=== PATIENT | female | born 1990 | race Caucasian/White ===

== ENCOUNTER 2019-09-28 14:17 | Emergency (ER) | payer MEDICAID, OTHER ==
[2019-09-28 14:35] VITALS: BP 135/77; PULSE 74
--- NOTE | 2019-09-28 15:25 | EDM.PDOC ---
ED HPI GENERAL MEDICAL PROBLEM - General Chief Complaint: Lower Extremity Injury/Pain Stated Complaint: SPRAIN ANKLE AT WORK Time Seen by Provider: 09/28/19 14:50 Source of Information: Reports: Patient History Limitations: Reports: No Limitations - History of Present Illness INITIAL COMMENTS - FREE TEXT/NARRATIVE: pt presents to the ER with left ankle pain that occurred while at work today after she twisted her ankle by missing the last step in a staircase. she states the pain is mostly in her lateral ankle and it worsens with shooting pain moving up her achilles tendon with passive and active ROM. passive and active ROM is painful, but she states she is able to demonstrate. she denies numbness, tingling, bruising, midfoot tenderness, deformity of left ankle and foot. Left Lower Ankle Pain Score (Numeric/FACES): 5 - Related Data Allergies Allergy/AdvReac Type Severity Reaction Status Date / Time codeine Allergy Pain Verified 09/28/19 14:52 morphine Allergy Nausea Verified 09/28/19 14:52 Home Meds: Home Meds Mirtazapine [Remeron] 15 mg PO BEDTIME 09/28/19 [History] OXcarbazepine [Trileptal] 300 mg PO BID 09/28/19 [History] Past Medical History - Past Health History Medical/Surgical History: Denies Medical/Surgical History HEENT History: Reports: Impaired Vision Other Cardiovascular History: periodical chest pain, having MRI this weekend. Hx of drug usage, Gastrointestinal History: Reports: GERD Other Genitourinary History: no problem [employer] HELPER History: Reports: , Spontaneous Other Musculoskeletal History: knee problems, prior to fall Neurological History: Reports: Concussion Psychiatric History: Reports: Addiction, Bipolar, Depression - Past Surgical History GI Surgical History: Reports: Cholecystectomy Social & Family History - Family History Family Medical History: Noncontributory - Tobacco Use Smoking Status *Q: Current Every Day Smoker Years of Tobacco use: 8 Packs/Tins Daily: 0.5 Used Tobacco, but Quit: No - Caffeine Use Caffeine Use: Reports: Coffee, Energy Drinks, Soda - Recreational Drug Use Recreational Drug Use: Yes Drug Use in Last 12 Months: No Review of Systems - Review of Systems Review Of Systems: Comprehensive ROS is negative, except as noted in HPI. ED EXAM, GENERAL - Physical Exam Exam: See Below Exam Limited By: No Limitations General Appearance: Alert, WD/WN, No Apparent Distress Eye Exam: Bilateral Eye: EOMI, PERRL Ears: Normal External Exam, Hearing Grossly Normal Head: Atraumatic, Normocephalic Respiratory/Chest: No Respiratory Distress, Lungs Clear, Normal Breath Sounds, No Accessory Muscle Use Cardiovascular: Normal Peripheral Pulses, Regular Rate, Rhythm, No Murmur Peripheral Pulses: 2+: Radial (L), Radial (R), Posterior Tibial (L), Posterior Tibial (R) Extremities: Other (left ankle ROM intact, TTP left lateral anterior malleolus. TTP achilles tendon. achilles reflex intact, fang test negative.) Neurological: Alert, Oriented, CN II-XII Intact, Normal Cognition Psychiatric: Normal Affect, Normal Mood Skin Exam: Warm, Dry, Intact Course - Vital Signs Last Recorded V/S: Last Vital Signs Temp 98.5 F 09/28/19 14:27 Pulse 74 09/28/19 14:27 Resp 16 09/28/19 14:27 BP 135/77 09/28/19 14:27 Pulse Ox 99 09/28/19 14:27 - Orders/Labs/Meds Orders: Active Orders 24 hr Category Date Time Status Ankle Min 3V Lt [CR] Stat Exams 09/28/19 14:27 Taken - Radiology Interpretation Free Text/Narrative:: wet read of ankle xray shows no noted fracture, dislocation, bony abnormality. Departure - Departure Time of Disposition: 15:28 Disposition: Home, Self-Care 01 Clinical Impression: Left ankle sprain - Discharge Information *PRESCRIPTION DRUG MONITORING PROGRAM REVIEWED*: Not Applicable *COPY OF PRESCRIPTION DRUG MONITORING REPORT IN PATIENT GIDEON: Not Applicable Instructions: RICE Therapy for Routine Care of Injuries, [id number] Referrals: PCP,None [Primary Care Provider] - Forms: ED Department Discharge Additional Instructions: Keep applied THI wrap in place for next 3-5 days. May loosen wrap as instructed to allow for any swelling that may occur. Apply cold pack intermittently to affected area-on for 10-15 minutes every 1-2 hours while awake. Should also elevate affected ankle to help decrease swelling. May take Tylenol and/or Ibuprofen according to package instructions as needed for pain. Diet and activity as tolerated. Follow up in clinic as needed. Call with any questions. Sepsis Event Note (ED) - Evaluation Sepsis Screening Result: No Definite Risk - Focused Exam Vital Signs: Vital Signs Temp Pulse Resp BP Pulse Ox 09/28/19 14:27 98.5 F 74 16 135/77 99 - Problem List & Annotations (1) Left ankle sprain SNOMED Code(s): 06264618, [id number] Code(s): S93.402A - SPRAIN OF UNSPECIFIED LIGAMENT OF LEFT ANKLE, INIT ENCNTR Status: Acute Current Visit: Yes Qualifiers: Encounter type: initial encounter Involved ligament of ankle: unspecified ligament Qualified Code(s): S93.402A - Sprain of unspecified ligament of left ankle, initial encounter - Problem List Review Problem List Initiated/Reviewed/Updated: Yes - My Orders Last 24 Hours: My Active Orders 09/28/19 14:27 Ankle Min 3V Lt [CR] Stat - Assessment/Plan Last 24 Hours: My Active Orders 09/28/19 14:27 Ankle Min 3V Lt [CR] Stat Assessment:: assessment: left ankle sprain plan: tylenol and ibuprofen OTC RICE therapy THI wrap for stability this pt was evaluated in the context of the covid 19 pandemic. differentials considered were varying degrees of ligamentous tear of lateral ankle, ankle fracture, achilles tendon rupture.
--- NOTE | 2019-09-28 22:26 | CR ---
DATE OF SERVICE: 09/28/2019 CLINICAL DATA: Left ankle pain. LEFT ANKLE: No acute fracture or dislocation. No lytic or blastic bone lesions. There is a small posterior calcaneal spur. [id number] MTDD
== END 2019-09-28 15:26 | disposition home or self-care (01) ==
LOC: LB.ED 14:17
DX: S93.402A Sprain of unspecified ligament of left ankle, initial encounter (principal); F31.9 Bipolar disorder, unspecified; F17.210 Nicotine dependence, cigarettes, uncomplicated; Z88.5 Allergy status to narcotic agent; Z79.899 Other long term (current) drug therapy; X50.1XXA Overexertion from prolonged static or awkward postures, initial encounter
CPT/HCPCS: 73610-LT; 99282; 99283-25